=== PATIENT | female | born 1970 | race Caucasian/White ===

== ENCOUNTER 2021-05-14 10:58 | Emergency (ER) | payer OTHER ==
[~2021-05-14] VITALS: Ht 170.2 cm; Wt 78.5 kg
[~2021-05-14 10:58] MED LIST: DABI150C PO; XARELTO15 MG PO; XARELTO20 MG PO
== END 2021-05-14 12:46 | disposition home or self-care (01) ==
LOC: ER 10:58
DX: M79.672 Pain in left foot (principal); M79.662 Pain in left lower leg; Z79.01 Long term (current) use of anticoagulants; Z86.718 Personal history of other venous thrombosis and embolism; Z86.16 Personal history of COVID-19
CPT/HCPCS: 93971; 99284-25

== ENCOUNTER → 2021-07-17 | Outpatient (CLI) | payer OTHER ==
[~2021-07-17] MED LIST changes: +DEXA4 PO; +DOXY100 PO; +ELIQUIS5 M2 PO; +Norco 5-325 Ta1 EACH PO; +PRED5 PO
== END | disposition home or self-care (01) ==
LOC: LAB 17:22 → LAB SHORT 17:22
DX: L65.9 Nonscarring hair loss, unspecified (principal)
CPT/HCPCS: 84443